=== PATIENT | female | born 2000 | race Caucasian/White ===

== ENCOUNTER 2018-05-11 09:42 | Outpatient (CLI) | payer MEDICAID, SELFPAY ==
[2018-05-11 10:57] VITALS: BMI 20.2
== END 2018-05-11 12:35 | disposition home or self-care (01) ==
LOC: WPOUT 09:44 → WP 09:50
PROVIDERS: Referring Provider Obstetrics & Gynecology; Visit Provider Obstetrics & Gynecology
DX: O30.0 Twin pregnancy (principal); Z3A.00 Weeks of gestation of pregnancy not specified
CPT/HCPCS: 59025; 59050; 99218; G0378

== ENCOUNTER 2018-05-15 09:50 | Outpatient (CLI) | payer MEDICAID, SELFPAY ==
[2018-05-15 10:18] VITALS: BMI 20.2
--- NOTE | 2018-05-16 08:06 | OB.TRI.NOTE ---
History of Present Illness Date of Service: 05/15/18 Was patient seen by the physician?: No Reason For Visit: NST Date of Service: 05/15/18 Gestational age: 24.4 Allergies No Known Allergies Allergy (Verified 05/15/18 10:19) NST - FHR Rate Baby A Baseline: 140 Variability:: Moderate Accelerations:: 10 x 10 Decelerations:: None NST Reactive:: Yes FHR Category:: Category I Uterine Activity:: no - FHR Rate Baby B Baseline: 145 Variability:: Moderate Accelerations:: 10 x 10 Decelerations:: None NST Reactive:: Yes FHR Category:: Category I Uterine Activity:: no Impression/Plan 17yo @ 24.4 wks, [place]/mono twins here for NST well being established.
== END 2018-05-15 11:25 | disposition home or self-care (01) ==
LOC: WPOUT 09:55 → WP 09:55
PROVIDERS: Referring Provider Obstetrics & Gynecology; Visit Provider Obstetrics & Gynecology
DX: O30.012 Twin pregnancy, monochorionic/monoamniotic, second trimester (principal); Z3A.24 24 weeks gestation of pregnancy
CPT/HCPCS: 59025

== ENCOUNTER 2018-05-18 09:55 | Outpatient (CLI) | payer MEDICAID, SELFPAY ==
[2018-05-18 10:19] VITALS: BMI 20.4
--- NOTE | 2018-05-18 12:27 | OB.TRI.NOTE ---
History of Present Illness Date of Service: 05/18/18 Reason For Visit: NST Allergies No Known Allergies Allergy (Verified 05/15/18 10:19) NST - FHR Rate Baby A Baseline: 140 Variability:: Minimal, Moderate Accelerations:: 10 x 10 Decelerations:: Variable NST Reactive:: Appropriate for gestational age Uterine Activity:: quiet - FHR Rate Baby B Baseline: 145 Variability:: Minimal, Moderate Accelerations:: 10 x 10 Decelerations:: Variable NST Reactive:: Appropriate for gestational age Uterine Activity:: quiet Impression/Plan Reassuring NST for mono-mono twins @25 weeks
== END 2018-05-18 12:28 | disposition home or self-care (01) ==
LOC: WPOUT 10:02 → WP 10:04
PROVIDERS: Referring Provider Obstetrics & Gynecology; Visit Provider Obstetrics & Gynecology
DX: O30.0 Twin pregnancy (principal); O76 Abnormality in fetal heart rate and rhythm complicating labor and delivery; Z3A.00 Weeks of gestation of pregnancy not specified
CPT/HCPCS: 59025; 59050; 99218; G0378

== ENCOUNTER 2018-05-22 10:04 | Outpatient (CLI) | payer MEDICAID, SELFPAY ==
[2018-05-22 10:23] VITALS: BMI 20.6
--- NOTE | 2018-05-29 12:46 | OB.TRI.PN ---
Progress Notes Date of Service: 05/22/18 Progress Note: Diagnosis: [place]-mono twin . Pt presented for NST. FHT reassuring for gestational age.
--- NOTE | 2018-05-29 12:49 | OB.TRI.PN_ITS ---
Progress Notes Date of Service: 05/13/18 Progress Note: Diagnosis: [place]-mono twin . Patient presented for NST. NST reassuring.
== END 2018-05-22 11:50 | disposition home or self-care (01) ==
LOC: WPOUT 10:05 → WP 10:05
PROVIDERS: Referring Provider Obstetrics & Gynecology; Visit Provider Obstetrics & Gynecology
DX: O30.0 Twin pregnancy (principal); Z3A.00 Weeks of gestation of pregnancy not specified
CPT/HCPCS: 59025; 59050; 99218; G0378

== ENCOUNTER 2018-05-25 09:40 | Outpatient (CLI) | payer MEDICAID, SELFPAY ==
--- NOTE | 2018-05-31 20:48 | OB.TRI.NOTE ---
History of Present Illness Date of Service: 05/25/18 Was patient seen by the physician?: No Reason For Visit: NST Date of Service: 05/25/18 Final IVA: 08/31/18 Final IVA Source: US <20 weeks Gestational age: 26 Weeks and 6 Days Allergies No Known Allergies Allergy (Verified 05/22/18 10:29) NST - FHR Rate Baby A Baseline: 145 bpm Variability:: Moderate Accelerations:: 15 x 15 Decelerations:: Variable NST Reactive:: Yes, Appropriate for gestational age FHR Category:: Category I - before discharge Uterine Activity:: quiet - FHR Rate Baby B Baseline: 150 bpm Variability:: Moderate Accelerations:: 15 x 15 Decelerations:: Variable NST Reactive:: Yes, Appropriate for gestational age FHR Category:: Category I - before discharge Uterine Activity:: quiet Impression/Plan 17-year-old high risk primigravida patient with monochorionic monoamniotic twin gestation at 26 weeks. NSTs x2 appropriate for gestational age.
== END 2018-05-25 11:45 | disposition home or self-care (01) ==
LOC: WPOUT 10:09 → WP 10:10
PROVIDERS: Referring Provider Obstetrics & Gynecology; Visit Provider Obstetrics & Gynecology
DX: O09.92 Supervision of high risk pregnancy, unspecified, second trimester (principal); O30.012 Twin pregnancy, monochorionic/monoamniotic, second trimester; O76 Abnormality in fetal heart rate and rhythm complicating labor and delivery; Z3A.26 26 weeks gestation of pregnancy
CPT/HCPCS: 59025; 59050; 99218; G0378

== ENCOUNTER 2018-06-01 09:55 | Outpatient (CLI) | payer MEDICAID, SELFPAY ==
[2018-06-01 10:23] VITALS: BMI 20.9
--- NOTE | 2018-06-01 12:39 | OB.TRI.NOTE ---
- Problem List (1) Monoamniotic and monochorionic twin gestation, antepartum Status: Acute History of Present Illness Date of Service: 06/01/18 Reason For Visit: NST Date of Service: 06/01/18 Final IVA: 08/31/18 Final IVA Source: US <20 weeks Gestational age: 27 Weeks and 0 Days History of Present Illness: Patient presents for NST for mono-mono twin gestation. She has no complaints. Allergies No Known Allergies Allergy (Verified 05/22/18 10:29) NST - FHR Rate Baby A Baseline: 140 Variability:: Moderate NST Reactive:: Appropriate for gestational age - FHR Rate Baby B Baseline: 140 Variability:: Moderate NST Reactive:: Appropriate for gestational age Uterine Activity:: Quiet Impression/Plan NST reassuring x 2. Ok for d/c home
== END 2018-06-01 12:35 | disposition home or self-care (01) ==
LOC: WPOUT 10:01 → WP 10:02
PROVIDERS: Referring Provider Advanced Practice Midwife; Visit Provider Advanced Practice Midwife
DX: O30.012 Twin pregnancy, monochorionic/monoamniotic, second trimester (principal); Z3A.27 27 weeks gestation of pregnancy
CPT/HCPCS: 59025; 59050; 76815; 99218; G0378

== ENCOUNTER 2018-06-02 14:30 | Outpatient (CLI) | payer MEDICAID, SELFPAY ==
--- NOTE | 2018-06-02 14:49 | OB.TRI.NOTE ---
History of Present Illness Date of Service: 06/02/18 Was patient seen by the physician?: Yes Reason For Visit: DECREASED MOVEMENT Date of Service: 06/02/18 Final IVA Source: US <20 weeks History of Present Illness: 17yo @ 27+ weeks gestation- MONO/MONO twins c/o decreased FM. pt reports only about 12 movements in 2 hours. pt denies vb, lof, contractions. pt is scheduled to See MFM at [facility] Monday06/05/18 and at that time possible admission until delivery. Pt offers no other concerns today. Allergies No Known Allergies Allergy (Verified 05/22/18 10:29) Physical Exam General: Alert, Oriented x3 Abdomen: Soft, Non Tender, Gravid Neurological: Cranial nerves II-XII grossly intact Presentation: Cephalic NST - FHR Rate Baby A Baseline: 140 Variability:: Moderate Accelerations:: 10 x 10 Decelerations:: None NST Reactive:: Yes, Appropriate for gestational age FHR Category:: Category I Uterine Activity:: irregular. Pt not feeling them - FHR Rate Baby B Baseline: 130 Variability:: Moderate Accelerations:: None, 10 x 10 Decelerations:: None NST Reactive:: Yes, Appropriate for gestational age FHR Category:: Category I Uterine Activity:: irregular. pt not feeling Impression/Plan 17yo @ 27+ weeks gestation with mono/mono twins- decreased FM. 1) Bedside ultrasound performed- Both fetus' moving well, MYRTLE appears wnl, FHR 130s/140s. Fetus A moving a lot - difficult to trace. 2) well being established- will get NST and will dc home. Patient to continue to do kick counts- call if any concerns
[2018-06-02 14:59] VITALS: BMI 20.9
[2018-06-02 16:17] LABS: Bacteria 0 SEEN /hpf (None Seen); Color, Urine Yellow (Yellow); Glucose, Dipstick Normal (Normal); Ketone-Dipstick Negative (Negative); Leukocyte Esterase-Dipstick 25 /ul (Negative); Mucous, Urine 0 SEEN /hpf (<or=2+); Nitrite-Dipstick Negative (Negative); Occult Blood-Urine Negative /ul (Negative); Protein-Dipstick Negative (Negative); Red Blood Cells-Urine 0 SEEN /hpf (0-5); Squamous Epithelial Cells - UA 0 SEEN /hpf (5-10); Urine Bilirubin Dipstick Negative (Negative); Urine Clarity Clear (Clear); Urine Urobilinogen Normal (Normal); White Blood Cells 0 SEEN /hpf (0-5)
--- NOTE | 2018-06-03 08:30 | OB.TRI.PN ---
Progress Notes Date of Service: 06/02/18 Progress Note: pt was having Contractions every 1-2 min- not feeling any pain or cramping. UA was performed- negative. NST - A) 140s mod william + accels 10x10 no decels B) 140s mod william, + accels 10x10 no decels TOCO: q1-3 at times and some irritability. - Pt is not feeling them. dc home - instructions reviewed. Laboratory Studies: Laboratory Tests 06/02/18 Range/Units 16:05 Urine Color Yellow (Yellow) Urine Clarity Clear (Clear) Urine pH 7.0 (5.0 - 8.0) Ur Specific [place] 1.010 (1.002-1.030) Urine Protein Negative (Negative) mg/dl Urine Glucose (UA) Normal (Normal) mg/dl Urine Ketones Negative (Negative) mg/dl Urine Occult Blood Negative (Negative) /ul Urine Nitrite Negative (Negative) Urine Bilirubin Negative (Negative) mg/dL Urine Urobilinogen Normal (Normal) mg/dl Ur Leukocyte Esterase 25 H (Negative) /ul Urine RBC 0 SEEN (0-5) /hpf Urine WBC 0 SEEN (0-5) /hpf Ur Squamous Epith Cells 0 SEEN (5-10) /hpf Urine Bacteria 0 SEEN (None Seen) /hpf Urine Mucus 0 SEEN (<or=2+) /hpf
== END 2018-06-02 17:14 | disposition home or self-care (01) ==
LOC: WPOUT 14:45 → WP 14:46
PROVIDERS: Referring Provider Obstetrics & Gynecology; Visit Provider Obstetrics & Gynecology
DX: O36.8120 Decreased fetal movements, second trimester, not applicable or unspecified (principal); O30.012 Twin pregnancy, monochorionic/monoamniotic, second trimester; Z3A.27 27 weeks gestation of pregnancy
CPT/HCPCS: 59025; 59050; 76815; 81001; 99218; G0378

== ENCOUNTER 2019-01-20 20:16 | Emergency (ER) | payer MEDICAID, SELFPAY ==
[2019-01-20 20:17] VITALS: BP 107/66; PULSE 122; RESP 16; TEMP 37.7; O2SAT 97; BMI 16.4
[2019-01-20] MEDS: Ketorolac 15 MG/ML Vial IV (20:54)
[2019-01-20] MEDS: 0.9% Normal Saline 1,000 ML 999 ML IV (20:54)
[2019-01-20 21:03] VITALS: BP 97/68; PULSE 89; RESP 22; O2SAT 100
[2019-01-20 21:32] LABS: ALB/GLOB Ratio 1.4 RATIO (0.9-2.4); AST(SGOT) 25 U/L (15-37); Alanine Aminotransfer ALT/SGPT 26 U/L (13-56); Albumin, Serum 4.1 g/dL (3.2-5.0); Alkaline Phosphatase 65 U/L (45-117); Anion Gap 11 (5-15); BUN 9 mg/dL (7-18); BUN/Creat Ratio 10.1 RATIO (10-20); Calcium,Total 8.7 mg/dL (8.5-10.1); Chloride 104 mmol/L (98-107); Creatinine, Serum 0.89 mg/dL (0.55-1.02); EST Glomerular Filtration Rate 85 mL/min (>60); Est Glom Filt Rate - Afr Amer 103 mL/min (>60); Estimated Creatinine Clearance 77.84 ml/min; Globulin 2.9 g/dL (2.2-4.2); Glucose 108 mg/dL (74-106); Potassium 3.6 mmol/L (3.5-5.1); Sodium Level 139 mmol/L (136-145)
[2019-01-20 21:38] LABS: Internal QC Validated? YES +Cl - CLEAR BKGD
[2019-01-20 21:40] LABS: Pregnancy, Serum, hCG Quali. NEGATIVE Negative
--- NOTE | 2019-01-20 21:40 | ED.DCSUM_ITS ---
History of Present Illness Chief Complaint: General Illness Narrative: Patient presenting for evaluation secondary to headache and fever. Patient reports that this morning she developed somewhat of an occipital headache and fevers as high as 103. She reports that symptoms have been relatively refractory to treatment with Tylenol. Patient reports that she also has a sore throat and some pain with swallowing, and some pain with palpation of the posterior portion of her neck. She denies any abnormal skin rashes. She denies any sick contacts or travel. She denies any history of recent surgeries, injections, or history of IV drug abuse. Patient does report that she has pain with turning her head, and feels almost as if she will pass out when she turns her head. She denies any underlying medical history. Review of systems otherwise negative. Past Medical History - Allergies and Home Meds Allergies/Adverse Reactions: Allergies No Known Allergies Allergy (Verified 01/20/19 20:19) Primary Care Physician: Care Physician,No Primary [Primary Care Provider] - Smoking Status: Never smoker Review of Systems All systems negative except as indicated General: Reports: Fever, Malaise ENT: Reports: Sore throat. Denies: Bilateral ear pain, Rhinorrhea Respiratory: Denies: Dyspnea, Cough Gastrointestinal: Denies: Nausea, Vomiting Musculoskeletal: Reports: Neck pain Skin: Denies: Rash Neurological: Reports: Headache Physical Exam Vital Signs/Narrative: Vital Signs Temp Pulse Resp BP Pulse Ox 01/20/19 21:03 89 22 H 97/68 100 01/20/19 20:17 99.9 F H 122 H 16 107/66 97 General: Well nourished, Well developed, - - Laying in the bed with a shirt over her eyes, ill-appearing but not toxic appearing. Head: NC, AT Eyes: Perrl, EOMI ENT: Moist mucous membranes, No rhinorrhea, TM's clear Neck: - - Patient complains of pain with palpation of the posterior portion of the neck. There are palpable posterior cervical lymph nodes noted. No evidence of masses. Negative Brudzinski and Kernig signs, positive jolt sign. Cardiovascular: Regular rhythm, No murmurs, Tachycardia Respiratory: No distress, CTA bilaterally, Chest nontender Abdomen: Soft, Nontender, Nondistended, Normal bowel sounds Extremities: Nontender, No edema Skin: Normal color, No rash, - - No evidence of petechial rash, splinter hemorrhages, [place]ay lesions or Osler nodes. Neuro: Alert, Oriented x3, Cranial nerves II-XII grossly intact, Normal Strength, Normal Sensation, Normal DTR, Normal Gait Psychological: Normal affect Diagnostic/Tx/Re-eval - Medical Decision Making Patient presented secondary to a febrile illness. She was complaining somewhat of having a headache and some neck pain. She did not seem to have any classic Brudzinski or Kernig sign but did complain of some pain with turning her head left and right. She has no evidence of petechia, she is recently nontoxic- appearing. IV was established laboratory studies were obtained. Patient was found to have a leukocytosis of 11 with a neutrophilic predominance, but was not found to have a anion gap acidosis or elevated lactic acid. Patient was given fluids and Toradol and repeat evaluation shows the patient to have symptomatic improvement. She still does complain of some headache and neck pain. I discussed with the patient about the possibility of meningitis, but frankly the patient really does not appear toxic at this point to make me think that she has bacterial meningitis and would warrant a lumbar puncture. We did discuss the risks and benefits of lumbar puncture, and the patient agrees that she would not like that performed this evening. Patient does not have a primary care physician, and I did want her checked in 24 hours if she does not start to have improvement so I recommended that she come back to the emergency department tomorrow should she not start having improvement. She also understands that should she have any sort of worsening that she should come back immediately to the emergency department. Patient was recommended conservative management measures for likely a viral illness including Tylenol ibuprofen fluids and rest. Patient was discharged in improved condition. Disposition: Home ED Disposition - Plan for ED Patient: Disposition: Home or Assisted Living Diagnosis: Viral illness Instructions: ED Fever Unconf Cause Referrals: Yoel Ayoub MD [STAFF PHYSICIAN] - Additional Instructions: Come back to the ED tomorrow for re-evaluation if you are not having improvement. Return earlier if you feel worse.
[2019-01-20 21:54] LABS: Absolute Lymphocyte Count 0.82 X10^3/ul (0.83-4.51); Basophil# 0.01 X10^3/uL; Basophil% 0.1 % (0-1); Eosinophil# 0.01 X10^3/uL; Eosinophils% 0.1 % (0-5); Hematocrit 39.3 % (37-47); Hemoglobin 13.6 g/dl (12.0-15.0); Lymphocyte # 0.82 X10^3/ul (4.0); Mean Corp Hgb Conc 34.6 g/gl (32-36); Mean Corpuscular Hgb 28.7 pg (27.0-32.0); Mean Corpuscular Volume 82.9 fL (81-99); Mean Platelet Vol. 10.3 fl (6.2-12.0); Monocyte# 0.87 X10^3/uL; Monocyte% 7.4 % (0-10); Neutrophil # 9.98 X10^3/uL (2.7-7.7); Neutrophil % 85.2 % (47-70); Platelet Count 218 K/mm3 (150-450); RBC Distribution Width CV 12.4 % (11.6-14.6); RBC Distribution Width SD 37.7 fl (35.1-43.9); Red Blood Count 4.74 M/mm3 (4.2-5.4); White Blood Count 11.7 K/mm3 (4.4-11.0)
[2019-01-20 22:00] LABS: POSITIVE COUNT NO; POSITIVE DIFFERENTIAL NO; POSITIVE MORPHOLOGY NO
[2019-01-20 22:17] VITALS: BP 107/67; PULSE 88; RESP 16; TEMP 36.8; O2SAT 99
[2019-01-20 22:41] LABS: International Normalized Ratio 1.2; Prothrombin Time (Protime)PT. 15.2 SECONDS (11.7-14.9)
[2019-01-20 22:42] LABS: Partial Thromboplast Time 33.2 Seconds (24.1-36.2)
== END 2019-01-20 22:25 | disposition home or self-care (01) ==
PROVIDERS: Emergency Provider Emergency Medicine
DX: B34.9 Viral infection, unspecified (principal); R51 Headache; R50.9 Fever, unspecified; R53.81 Other malaise; J02.9 Acute pharyngitis, unspecified; M54.2 Cervicalgia
CPT/HCPCS: 36415; 80053; 83605; 84703; 85025; 85610; 85730; 87040; 87880; 96361; 96374; 99284; J7030

== ENCOUNTER → 2019-01-31 | Outpatient (CLI) | payer MEDICAID, SELFPAY ==
[2019-01-20 20:17] VITALS: BMI 16.4
== END | disposition home or self-care (01) ==
LOC: WPOUT 13:00
DX: Z39.1 Encounter for care and examination of lactating mother (principal)
CPT/HCPCS: 96152

== ENCOUNTER 2019-04-28 21:40 | Emergency (ER) | payer MEDICAID, SELFPAY ==
[2019-04-28 21:40] VITALS: BP 147/82; PULSE 72; RESP 16; TEMP 36.6; O2SAT 100; BMI 18.1
--- NOTE | 2019-04-28 21:59 | ED.VIS.GEN ---
History of Present Illness Chief Complaint: Wound Detail of Chief Complaint: Self-inflicted cuts to left thigh Informant: Patient, Family Onset: Today Current Severity: Mild Maximum Severity: Mild Narrative: Patient has a history of cutting. Today she is a pair of scissors to make multiple linear superficial lacerations on her proximal left thigh. She states this was to release her anger, not an attempt to hurt herself. She has been in counseling in the past but has not been recently. She does voice interest in getting into counseling again. She denies that this was a suicide attempt. She does feel safe in her home. Past Medical History - Allergies and Home Meds Allergies/Adverse Reactions: Allergies No Known Allergies Allergy (Verified 04/28/19 21:42) Primary Care Physician: Counseling,[facility] [GROUP OF PHYSICIANS] - Behavioral,[facility] [GROUP OF PHYSICIANS] - Prior records reviewed: Yes Past Medical History: - - Reviewed Lives: With Family Smoking Status: Never smoker Review of Systems General: Denies: Chills, Fever Eyes: Denies: Visual changes - bilaterally ENT: Denies: Bilateral ear pain Cardiovascular: Denies: Chest pain Respiratory: Denies: Dyspnea, Cough Gastrointestinal: Denies: Abdominal pain, Nausea Musculoskeletal: Reports: Myalgias Skin: Reports: Wounds Neurological: Denies: Headache Psych: Denies: Suicidal thoughts Hematologic: Denies: Easy bleeding Allergy: Denies: Uticaria Physical Exam Vital Signs/Narrative: Vital Signs Temp Pulse Resp BP Pulse Ox 04/28/19 21:40 98 F 72 16 147/82 H 100 Inital Vital Signs reviewed: Yes General: Well nourished, Well developed Head: Normocephalic ENT: Moist mucous membranes Neck: Supple Cardiovascular: Regular rate, Regular rhythm Respiratory: No distress, CTA bilaterally Abdomen: Soft, Nontender Extremities: - - Patient has multiple parallel superficial lacerations over the proximal left thigh, measuring approximate 9 cm in length. 1 of the lacerations is minimally gaping. Others do not require any repair. Neurological: Alert, Oriented x3 Psychological: - - Denies suicidal or homicidal ideation. Diagnostic/Tx/Re-eval - Medical Decision Making Left thigh wounds are cleansed. I do not believe that placing 1 or 2 small stitches in the one laceration that is slightly gaping will greatly change healing time. She has not read out the cosmetic appearance. Surgifoam was placed across the area and area is wrapped with Ernie wrap. Patient continues to state this was not a suicide attempt. She does not feel that she needs to speak with a counselor beth, but is interested and pursuing follow-up with counseling. is present at bedside. He feels comfortable with her at home and feels that he can help keep her safe as well. Patient is given phone numbers for both the counseling center as well as behavioral health. ED Disposition - Plan for ED Patient: Disposition: Home or Assisted Living Diagnosis: Deliberate self-cutting Instructions: Wound Care Referrals: [facility] [GROUP OF PHYSICIANS] - Behavioral,[facility] [GROUP OF PHYSICIANS] -
[2019-04-28 22:35] VITALS: BP 142/60; PULSE 70; RESP 16; O2SAT 98
== END 2019-04-28 22:36 | disposition home or self-care (01) ==
LOC: ED 22:00
PROVIDERS: Emergency Provider Emergency Medicine
DX: S71.112A Laceration without foreign body, left thigh, initial encounter (principal); X78.8XXA Intentional self-harm by other sharp object, initial encounter; Y93.9 Activity, unspecified; Y92.9 Unspecified place or not applicable; Z91.5 Personal history of self-harm
CPT/HCPCS: 99282

== ENCOUNTER 2020-04-06 17:35 | Outpatient (CLI) | payer MEDICAID, SELFPAY ==
[2020-04-06 17:50] VITALS: BP 124/71; PULSE 82; TEMP 36.6
[2020-04-06 18:17] VITALS: BMI 21.2
[2020-04-06 19:51] VITALS: BP 121/75; PULSE 109
--- NOTE | 2020-04-09 20:44 | OB.TRI.NOTE ---
History of Present Illness Date of Service: 04/06/20 Was patient seen by the physician?: No Reason For Visit: MONITORING Date of Service: 04/06/20 Final IVA: 04/14/20 Final IVA Source: US <20 weeks Gestational age: 39 Weeks and 2 Days Allergies No Known Allergies Allergy (Verified 04/06/20 18:19) Physical Exam Vitals: Vital Signs Temp Pulse BP 97.9 F 109 H 121/75 H 04/06/20 17:50 04/06/20 19:51 04/06/20 19:51 NST - FHR Rate Baby A Baseline: 120 Variability:: Moderate Accelerations:: 15 x 15 Decelerations:: None NST Reactive:: Yes FHR Category:: Category I Uterine Activity:: irreg ctxs Impression/Plan 19 YOF @ 38 6/7 weeks decreased movement reactive NST kick counts f/u in offie this week or prn
== END 2020-04-06 18:40 | disposition home or self-care (01) ==
LOC: WPOUT 17:47 → OBT 17:48
PROVIDERS: Visit Provider Obstetrics & Gynecology
DX: O36.8130 Decreased fetal movements, third trimester, not applicable or unspecified (principal); Z3A.38 38 weeks gestation of pregnancy
CPT/HCPCS: 59025; 59050; 99218; G0378

== ENCOUNTER 2020-04-10 18:55 | Outpatient (CLI) | payer MEDICAID, SELFPAY ==
[2020-04-10 19:18] VITALS: BP 136/87; PULSE 87; TEMP 36.9; O2SAT 99
[2020-04-10 19:30] VITALS: BMI 21.2
[2020-04-10 19:40] VITALS: BP 109/69; PULSE 78
--- NOTE | 2020-04-10 21:53 | OB.TRI.NOTE ---
- Problem List (1) 39 weeks gestation of Status: Acute (2) History of delivery Status: Acute (3) Irregular contractions Status: Acute History of Present Illness Date of Service: 04/10/20 Was patient seen by the physician?: Yes Reason For Visit: R/O LABOR Date of Service: 04/10/20 Final IVA: 04/14/20 Final IVA Source: US <20 weeks Gestational age: 39 Weeks and 3 Days History of Present Illness: Patient is a at 39.3 weeks gestation here for contractions starting at 1400. Patient denies loss of fluid or vaginal bleeding. Positive movement. History of C/S mono-mono twins at 32 weeks gestation. Desires with this . Allergies No Known Allergies Allergy (Verified 04/10/20 19:31) Review of Systems Constitutional: Denies: Anorexia, Chills, Fever Cardiovascular: Denies: Chest Pain Respiratory: Denies: Cough, Shortness of Breath Gastrointestinal: Denies: Abdominal Pain Genitourinary: Denies: Dysuria Physical Exam Vitals: Vital Signs Temp Pulse BP Pulse Ox 98.5 F 78 109/69 99 04/10/20 19:18 04/10/20 19:40 04/10/20 19:40 04/10/20 19:18 General: Alert, Oriented x3 Cardiovascular: Regular rate Lungs: Clear to auscultation, Normal air movement Abdomen: Soft, Non Tender, Gravid Neurological: Cranial nerves II-XII grossly intact Cervix Dilation (cm): 1.5 - RN exam Station: -1 Effacement (%): 70 NST - FHR Rate Baby A Baseline: 125 Variability:: Moderate Accelerations:: 15 x 15 Decelerations:: Variable NST Reactive:: Yes FHR Category:: Category I Uterine Activity:: TOCO reading every 2-5 minutes. Palpate mild and relaxed in between Impression/Plan at 39.3 weeks gestation rule out labor Continuous monitoring Category 1 tracing- Reactive NST Cervical exam unchanged Discussed early labor- patient desires and unmedicated Discharge home with labor precautions and when to call or return Dr. Reid notified and agrees with plan of care- collaborating physician
== END 2020-04-10 21:54 | disposition home or self-care (01) ==
LOC: WPOUT 19:01 → OBT 19:02
PROVIDERS: Visit Provider Advanced Practice Midwife
DX: O62.9 Abnormality of forces of labor, unspecified (principal); Z3A.39 39 weeks gestation of pregnancy
CPT/HCPCS: 59025; 59050; 94760; 99218; G0378

== ENCOUNTER 2020-04-11 19:22 | Outpatient (CLI) | payer MEDICAID, SELFPAY ==
[2020-04-10 19:30] VITALS: BMI 21.2
[2020-04-11 19:35] VITALS: BP 116/71; PULSE 85; TEMP 36.7; O2SAT 96
[2020-04-11 19:45] VITALS: BMI 21.2
[2020-04-11] MEDS: Lactated Ringers 1,000 ML 999 ML IV (20:10)
--- NOTE | 2020-04-11 21:31 | OB.TRI.NOTE ---
- Problem List (1) 39 weeks gestation of Status: Acute (2) History of delivery Status: Acute (3) Irregular contractions Status: Acute History of Present Illness Date of Service: 04/11/20 Reason For Visit: RULE OUT LABOR Date of Service: 04/11/20 Final IVA Source: US <20 weeks Gestational age: 39.4 History of Present Illness: Patient is a that presents with contractions that continue to increase in intensity and frequency. Denies loss of fluid or vaginal bleeding. Positive movement. Patient was here in triage last night with same concerns and discharged home. History of c/s for mono/mono twins and desires and an unmedicated labor and delivery. Allergies No Known Allergies Allergy (Verified 04/11/20 19:47) Review of Systems Constitutional: Denies: Anorexia, Chills, Fever Cardiovascular: Denies: Chest Pain, Edema Respiratory: Denies: Cough, Shortness of Breath Gastrointestinal: Denies: Abdominal Pain Neurological: Denies: Balance problems Physical Exam Vitals: Vital Signs Temp Pulse BP Pulse Ox 98.0 F 85 116/71 96 04/11/20 19:35 04/11/20 19:35 04/11/20 19:35 04/11/20 19:35 General: Alert, Oriented x3 Cardiovascular: Regular rate Lungs: Normal air movement Abdomen: Soft, Non Tender, Gravid Neurological: Cranial nerves II-XII grossly intact Presentation: Cephalic Cervix Dilation (cm): 1.5 - RN exam Station: -2 Effacement (%): 80 NST - FHR Rate Baby A Baseline: 130 Variability:: Moderate Accelerations:: 15 x 15 Decelerations:: Variable NST Reactive:: Yes FHR Category:: Category II Uterine Activity:: Irregular contractions Impression/Plan at 39.4 weeks with contractions Continuous EFM Category 2 tracing with occasional variables, moderate variability and overall reassuring Irregular contractions Start IV fluids to assist with hydration Offered Extra Strength Tylenol for pain Dr. Reid notified and viewed strip CE- Unchanged from yesterday 1.5cm/70/-2 Discharged home with labor precautions Patient agrees with plan of care
[2020-04-11 21:33] VITALS: PULSE 70
[2020-04-11] MEDS: Acetaminophen 500 MG Tablet 1000 MG PO (22:06)
[2020-04-11] MEDS: DiphenhydrAMINE 25 MG Capsule PO (22:07)
== END 2020-04-11 22:30 | disposition home or self-care (01) ==
LOC: WPOUT 19:27 → OBT 19:28
PROVIDERS: Visit Provider Advanced Practice Midwife
DX: O62.9 Abnormality of forces of labor, unspecified (principal); O36.8330 Maternal care for abnormalities of the fetal heart rate or rhythm, third trimester, not applicable or unspecified; Z3A.39 39 weeks gestation of pregnancy
CPT/HCPCS: 96360; 36415; 59025; 59050; 99218; G0378

== ENCOUNTER 2020-04-12 10:31 | Inpatient (IN) | payer MEDICAID, SELFPAY ==
[2020-04-11 19:45] VITALS: BMI 21.2
[2020-04-12] VITALS (39 sets, daily range): BP systolic 103–137; BP diastolic 57–100; PULSE 66–100; RESP 16; TEMP 36.7–37.2; O2SAT 92–100; BMI 21.2
[2020-04-12] MEDS: Lactated Ringers 500 ML 999 ML IV (10:50)
--- NOTE | 2020-04-12 11:20 | PCM.HP.OB ---
- Problem List (1) 39 weeks gestation of Status: Acute (2) History of delivery Status: Acute History Date of Admission: 04/12/20 Final IVA: 04/14/20 Final IVA Source: US <20 weeks Gestational age: 39 Weeks and 5 Days History of this : This is a 19 year-old, G [2], P [0102], at 38.6 weeks gestational age in active labor. Patient desires . History of primary c/s for mono/mono twins at 32 weeks gestation. Patient has been asia all weekend and has been to triage 2x with no cervical change and sent home. Positive movement and denies any loss of fluid or vaginal bleeding. Allergies No Known Allergies Allergy (Verified 04/12/20 11:05) Home Medications: Home Medications Pnv No.95/Ferrous Fum/Folic AC [ Caplet] 1 tablet PO DAILY 04/06/20 Iron 04/10/20 Smoking Status: Never smoker Number of Fetus(es): 1 NST - FHR Rate Baby A Baseline: 130 Variability:: Moderate Accelerations:: 15 x 15 Decelerations:: None FHR Category:: Category I Uterine Activity:: TOCO reading every 2-3 minutes. Palpate strong and relaxed in between History Past Pregnancies: Past Pregnancies Delivery Date Name GA/ Weeks Outcome Route Wt Sex Labor Length Anesthesia Delivery Location Provider FOB Labs: B+ Rubella - IMMUNE HB -neg HC- neg RPR- NR HIV- NR GC/CH- neg GBS- positive Review of Systems Constitutional: Denies: Anorexia, Chills Eyes: Denies: Blurred vision Cardiovascular: Denies: Chest Pain, Chest Tightness Respiratory: Denies: Cough, Shortness of Breath Genitourinary: Denies: Dysuria Neurological: Denies: Headaches Physical Exam Vitals: Vital Signs Temp Pulse BP Pulse Ox 99.0 F 93 111/78 98 04/12/20 10:43 04/12/20 10:57 04/12/20 10:56 04/12/20 10:57 General: Alert, Oriented x3 HEENT: Atraumatic Cardiovascular: Regular rate Lungs: Normal air movement Abdomen: Soft, Non Tender, Gravid Neurological: Cranial nerves II-XII grossly intact Estimated gestational size: Small for gestational age Cervix Dilation (cm): 5 Station: 1 Effacement (%): 90 Assessment/Plan All Active Problems Monoamniotic and monochorionic twin gestation, antepartum (Acute) 39 weeks gestation of (Acute) History of delivery (Acute) Irregular contractions (Acute) This is a 19 year-old, G [2], P [0102], at 39.5 weeks gestational age that desires in active labor Admit to labor and delivery IV fluids per protocol GBS + - Start PCN 5 million units IV Epidural when indicated Anticipate Negative COVID- 19 Dr. Reid notified and is in route to hospital to be in house
[2020-04-12 11:23] LABS: Absolute Lymphocyte Count 2.56 X10^3/uL (0.83-4.51); Absolute Neutrophil Count 12.4 X10^3/uL (2.0-7.7); Basophil# 0.03 X10^3/uL; Basophil% 0.2 % (0-1); Eosinophil# 0.06 X10^3/uL; Eosinophils% 0.4 % (0-5); Hematocrit 35.4 % (37-47); Hemoglobin 12.2 g/dL (12.0-15.0); Lymphocyte # 2.56 X10^3/ul (4.0); Lymphocyte % 16.2 % (19-41); Mean Corp Hgb Conc 34.5 g/dL (32-36); Mean Corpuscular Hgb 29.7 pg (27.0-32.0); Mean Corpuscular Volume 86.1 fL (81-99); Mean Platelet Vol. 10.4 fl (6.2-12.0); Monocyte# 0.72 X10^3/uL; Monocyte% 4.5 % (0-10); NRBC Flagged by Analyzer 0 % (0-5); Neutrophil # 12.41 X10^3/uL (2.7-7.7); Neutrophil % 78.3 % (47-70); Platelet Count 236 K/mm3 (150-450); RBC Distribution Width CV 12.6 % (11.6-14.6); RBC Distribution Width SD 39.2 fl (35.1-43.9); Red Blood Count 4.11 M/mm3 (4.2-5.4); White Blood Count 15.9 K/mm3 (4.4-11.0)
[2020-04-12] MEDS: Lactated Ringers 1,000 ML 200 ML IV (11:27)
[2020-04-12] MEDS: fentaNYL-bupivacaine (epidural) 100 ML BAG EPIDURAL (11:39)
[2020-04-12] MEDS: Oxytocin 30 units/NS 500 ml 30 UNITS/500 ML IV.SOLN 334 UNITS IV (13:11)
--- NOTE | 2020-04-12 13:40 | PCM.OPRPT ---
Problem List (1) 39 weeks gestation of Status: Acute (2) History of delivery Status: Acute Report of Operation Date of Procedure: 04/12/20 Pre-Operative Diagnosis: Term gestation, Active labor Post-Operative Diagnosis: Same, live male infant Vaginal Delivery Maternal Presentation: Active Labor at 39.5 weeks gestation for presented in active labor. Amniotic Membrane Rupture Type: Artificial Amniotic Fluid Description: Thick meconium Final IVA: 04/14/20 Gestational age: 39 Weeks and 5 Days doctor who attended delivery (if requested by OB): Irma Oliveira Surgery/ Procedure Performed: - - Type of Anesthesia: Epidural Description of Procedure: Patient arrived in active labor and quickly progressed to complete dilation. Requesting this provider to A.R.O.M which was completed and fluid was thick meconium. Patient involuntarily pushing with contractions. Infant head delivered and body quickly there after. Placed on maternal abdomen and infant began crying. Health Care Law Specialist in room and nursery nurse attending to baby. Delayed cord clamp completed and FOB cut cord after 2 minutes. placed immediately skin to skin with patient. Placenta delivered spontaneously and was intact. After careful inspection, bilateral labial lacerations noted. The right labial laceration was repaired with 3-0 Vicryl. The left sided labial laceration was hemostatic and did not require repair. Vaginal sweep completed. All needles and sponges accounted for. Fundus firm at U. Mom and baby bonding at this time. Dr. Reid present for delivery and repair. Presentation: Vertex Placental Delivery Description: Spontaneous Placenta Disposition: [facility] Cord Vessel Description: 3 Vessels Cord Entanglement: None Drain: Grant to straight drain - 500 cc clear, yellow urine drained Estimated Blood Loss: 250 A gender: Male (1 minute): 8 (5 minute): 9 Episiotomy Description: None Laceration: Vaginal Extension/lac, 1st degree - Bilateral labial lacerations. Right side repaired Medications given after delivery: IV Pitocin Complications: None
[2020-04-12] MEDS: Ibuprofen 600 MG Tablet PO ×2 (16:09→23:32)
[2020-04-12] MEDS: Acetaminophen 500 MG Tablet 1000 MG PO (18:31)
[2020-04-12] MEDS: Dibucaine 30 GM Tube 1 APPLIC TOPICAL (18:32)
[2020-04-13] MEDS: Acetaminophen 500 MG Tablet 1000 MG PO ×2 (03:04→20:53)
[2020-04-13 04:12] VITALS: BP 121/67; PULSE 80; RESP 16; TEMP 36.7
[2020-04-13] MEDS: Ibuprofen 600 MG Tablet PO ×2 (07:48→20:33)
[2020-04-13 07:53] VITALS: BP 99/62; PULSE 68; RESP 16; TEMP 36.6
[2020-04-13] MEDS: Senna/Docusate Sodium 1 Tablet PO (08:10)
[2020-04-13 14:30] VITALS: BP 96/53; PULSE 89; RESP 16; TEMP 37.1
--- NOTE | 2020-04-13 17:00 | PCM.PN.OB ---
Subjective: No complaints - Physical Exam Vitals/I&O's: Vital Signs Temp Pulse Resp BP Pulse Ox 98.8 F 89 16 96/53 L 97 04/13/20 14:30 04/13/20 14:30 04/13/20 14:30 04/13/20 14:30 04/12/20 13:43 Oxygen Delivery Method Room Air Weight: 140 lb Body Mass Index (BMI) 21.2 Intake and Output for Last 24 Hours 04/11/20 04/12/20 04/13/20 23:59 23:59 23:59 Intake Total 1445 / 1445 Output Total 650 / 650 Balance 795 / 795 General: Alert, Oriented x3 Abdomen: Soft, Non Tender, Non-Distended - ff mid & below umb Extremities: No Calf Tenderness Current Medications Acetaminophen (Tylenol) 1,000 mg PO Q8H PRN PRN PRN Reason: Pain Score 1-3/10 Last Admin: 04/13/20 03:04 Dose: 1,000 mg Documented by: Bisacodyl (Dulcolax) 10 mg RECTAL UD PRN PRN Reason: If no BM Dibucaine (Dibucaine) 1 applic TOPICAL TID PRN PRN; Protocol PRN Reason: Discomfort Last Admin: 04/12/20 18:32 Dose: 1 applicatio Documented by: Hydrocortisone (Hytone) 1 applic TOPICAL TID PRN PRN; Protocol PRN Reason: Discomfort Ibuprofen (Motrin) 600 mg PO Q6H PRN PRN PRN Reason: Pain Score 1-3/10 Last Admin: 04/13/20 07:48 Dose: 600 mg Documented by: Methylergonovine Maleate (Methergine) 0.2 mg IM X1 PRN PRN Reason: Excess bleeding/uterine atony Ondansetron HCl (Zofran) 4 mg IV Q4H PRN PRN PRN Reason: Nausea Oxycodone HCl (Oxyir) 5 - 10 mg PO Q4H PRN PRN PRN Reason: Pain Score 4-10/10 Senna/Docusate Sodium (Senokot-S, Ivory-Colace) 1 - 2 tablet PO DAILY PRN PRN PRN Reason: Constipation Last Admin: 04/13/20 08:10 Dose: 1 tablet Documented by: Simethicone (Mylicon) 80 mg PO PCHS PRN PRN Reason: Indigestion/Stomach pain Sodium Chloride () 5 - 15 ml IV UD PRN PRN Reason: SALINE FLUSH Medical Necessity - Tobacco Use Smoking Status: Never smoker Assessment/Plan All Active Problems 39 weeks gestation of (Acute) History of delivery (Acute) Irregular contractions (Acute) PPD#1 Routine care
[2020-04-13 20:25] VITALS: BP 106/61; PULSE 71; RESP 16; TEMP 36.8
[2020-04-14 01:52] VITALS: BP 100/57; PULSE 58; RESP 18; TEMP 36.4
[2020-04-14] MEDS: Ibuprofen 600 MG Tablet PO (06:12)
--- NOTE | 2020-04-14 08:19 | PCM.PN.OB ---
Subjective: Pain well controlled. Average lochia. No new complaints. - Physical Exam Vitals/I&O's: Vital Signs Temp Pulse Resp BP Pulse Ox 97.5 F L 58 L 18 100/57 L 97 04/14/20 01:52 04/14/20 01:52 04/14/20 01:52 04/14/20 01:52 04/12/20 13:43 Oxygen Delivery Method Room Air Weight: 63.503 kg Body Mass Index (BMI) 21.2 Intake and Output for Last 24 Hours 04/12/20 04/13/20 04/14/20 23:59 23:59 23:59 Intake Total 1445 / 1445 Output Total 650 / 650 Balance 795 / 795 General: Alert, Cooperative, No apparent distress Current Medications Acetaminophen (Tylenol) 1,000 mg PO Q8H PRN PRN PRN Reason: Pain Score 1-3/10 Last Admin: 04/13/20 20:53 Dose: 1,000 mg Documented by: Bisacodyl (Dulcolax) 10 mg RECTAL UD PRN PRN Reason: If no BM Dibucaine (Dibucaine) 1 applic TOPICAL TID PRN PRN; Protocol PRN Reason: Discomfort Last Admin: 04/12/20 18:32 Dose: 1 applicatio Documented by: Hydrocortisone (Hytone) 1 applic TOPICAL TID PRN PRN; Protocol PRN Reason: Discomfort Ibuprofen (Motrin) 600 mg PO Q6H PRN PRN PRN Reason: Pain Score 1-3/10 Last Admin: 04/14/20 06:12 Dose: 600 mg Documented by: Methylergonovine Maleate (Methergine) 0.2 mg IM X1 PRN PRN Reason: Excess bleeding/uterine atony Ondansetron HCl (Zofran) 4 mg IV Q4H PRN PRN PRN Reason: Nausea Oxycodone HCl (Oxyir) 5 - 10 mg PO Q4H PRN PRN PRN Reason: Pain Score 4-10/10 Senna/Docusate Sodium (Senokot-S, Ivory-Colace) 1 - 2 tablet PO DAILY PRN PRN PRN Reason: Constipation Last Admin: 04/13/20 08:10 Dose: 1 tablet Documented by: Simethicone (Mylicon) 80 mg PO PCHS PRN PRN Reason: Indigestion/Stomach pain Sodium Chloride () 5 - 15 ml IV UD PRN PRN Reason: SALINE FLUSH Medical Necessity - Tobacco Use Smoking Status: Never smoker Assessment/Plan All Active Problems 39 weeks gestation of (Acute) History of delivery (Acute) Irregular contractions (Acute) day #2 status post vaginal delivery after previous delivery. is breast-feeding and doing well. Is doing well. Discharge home with routine instructions.
--- NOTE | 2020-04-14 08:23 | DCINST_ITS ---
Discharge Diet: No Restrictions Discharge Activity: Return to Normal Activity, May not drive while taking narcotic pain medications., May Shower May resume sexual activity in: 4-6 weeks Additional Activity Instructions:: Nothing in the vagina for 4-6 weeks. You may return to work/school in 6 weeks. Call your doctor if your incision/area has: Continuous Slow Oozing, Sudden Increased Bleeding, Increased Pain/ Swelling, Increased Redness, Foul Smelling Discharge Additional Instructions: If you experience any of the following, contact your healthcare provider. * Bleeding that soaks a pad every hour for 2 hours * Fever 100.4 or higher * Unrelieved incision or abdominal pain * Swelling, redness, discharge or bleeding from your incision or episiotomy site * Your incision begins to separate * Problems urinating (including inability to urinate or burning while urinating). * Visual changes * Severe headache * Flu-like symptoms * Pain or redness in one of both of your breasts * Pain, warmth, tenderness or swelling in your legs, especially the calf area * Frequent nausea and vomiting * Symptoms of depression or anxiety If you experience any of the following, call 911 or go to the nearest Emergency Room. * Chest pain * Problems breathing * Seizure activity * Partial or complete paralysis of a body part, slurred speech, weakness or drooping of the face, or a sudden inability to walk or hold your balance Allergies/Adverse Reactions: Allergies No Known Allergies Allergy (Verified 04/12/20 11:05) Medications to take at Discharge Pnv No.95/Ferrous Fum/Folic AC [ Caplet] 1 tablet PO DAILY 04/06/20 Iron 04/10/20 Please Follow Up With: Fior Reid MD - [phone] When: Call to make an appointment with your doctor's office for a virtual 1-2 week follow up and 6 week follow up in office. Primary Care Physician: Care Physician,No Primary [Primary Care Provider] - Test Results: Test results from this visit will be discussed in further detail at your follow- up appointment, if applicable.
--- NOTE | 2020-04-14 08:23 | PCM.DCVAG ---
Discharge Diet: No Restrictions Discharge Activity: Return to Normal Activity, May not drive while taking narcotic pain medications., May Shower May resume sexual activity in: 4-6 weeks Additional Activity Instructions:: Nothing in the vagina for 4-6 weeks. You may return to work/school in 6 weeks. Call your doctor if your incision/area has: Continuous Slow Oozing, Sudden Increased Bleeding, Increased Pain/ Swelling, Increased Redness, Foul Smelling Discharge Additional Instructions: If you experience any of the following, contact your healthcare provider. Bleeding that soaks a pad every hour for 2 hours Fever 100.4 or higher Unrelieved incision or abdominal pain Swelling, redness, discharge or bleeding from your incision or episiotomy site Your incision begins to separate Problems urinating (including inability to urinate or burning while urinating). Visual changes Severe headache Flu-like symptoms Pain or redness in one of both of your breasts Pain, warmth, tenderness or swelling in your legs, especially the calf area Frequent nausea and vomiting Symptoms of depression or anxiety If you experience any of the following, call 911 or go to the nearest Emergency Room. Chest pain Problems breathing Seizure activity Partial or complete paralysis of a body part, slurred speech, weakness or drooping of the face, or a sudden inability to walk or hold your balance Allergies/Adverse Reactions: Allergies No Known Allergies Allergy (Verified 04/12/20 11:05) Medications to take at Discharge Pnv No.95/Ferrous Fum/Folic AC [ Caplet] 1 tablet PO DAILY 04/06/20 Iron 04/10/20 Please Follow Up With: Fior Reid MD - [phone] When: Call to make an appointment with your doctor's office for a virtual 1-2 week follow up and 6 week follow up in office. Primary Care Physician: Care Physician,No Primary [Primary Care Provider] - Test Results: Test results from this visit will be discussed in further detail at your follow-up appointment, if applicable.
[2020-04-14 08:34] VITALS: BP 94/56; PULSE 74; RESP 16; TEMP 36.4
== END 2020-04-14 10:50 | disposition home or self-care (01) | DRG 560 ==
LOC: WPOUT 10:41 → WP 13:24 → WPOUT 04-14 10:08
PROVIDERS: Admitting Provider Advanced Practice Midwife; Referring Provider Advanced Practice Midwife; Visit Provider Advanced Practice Midwife
DX: O34.219 Maternal care for unspecified type scar from previous cesarean delivery (principal); O99.824 Streptococcus B carrier state complicating childbirth; O77.0 Labor and delivery complicated by meconium in amniotic fluid; O70.0 First degree perineal laceration during delivery; Z3A.39 39 weeks gestation of pregnancy; Z37.0 Single live birth; O36.8330 Maternal care for abnormalities of the fetal heart rate or rhythm, third trimester, not applicable or unspecified
CPT/HCPCS: 36415; 59025; 59050; 85025; 86850; 86900; 86901; 94760; 99218; J7120; G0378

== ENCOUNTER → 2020-04-27 11:01 | Outpatient (CLI) | payer MEDICAID, SELFPAY ==
[2020-04-12 11:04] VITALS: BMI 21.2
== END ==
PROVIDERS: Referring Provider Advanced Practice Midwife; Visit Provider Advanced Practice Midwife
DX: Z39.1 Encounter for care and examination of lactating mother (principal)
CPT/HCPCS: 96158; 96159

== ENCOUNTER → 2020-07-07 13:25 | Outpatient (CLI) | payer MEDICAID, SELFPAY ==
[2020-04-12 11:04] VITALS: BMI 21.2
== END ==
PROVIDERS: Referring Provider Advanced Practice Midwife; Visit Provider Advanced Practice Midwife
DX: Z39.1 Encounter for care and examination of lactating mother (principal)
CPT/HCPCS: 96158

== ENCOUNTER 2023-03-10 18:10 | Emergency (ER) | payer SELFPAY ==
[2023-03-10 18:10] VITALS: BP 130/95; PULSE 106; RESP 18; TEMP 36.8; O2SAT 100; BMI 16.7
[2023-03-10] MEDS: 0.9% Normal Saline 1,000 ML 999 ML IV (18:58)
[2023-03-10] MEDS: Ketorolac 15 MG/ML Vial IV (18:58)
[2023-03-10 19:04] LABS: Absolute Lymphocyte Count 2.43 X10^3/uL (0.83-4.51); Basophil% 0.7 % (0-1); Eosinophil# 0.39 X10^3/uL; Eosinophils% 2.9 % (0-5); Hematocrit 37.3 % (37-47); Hemoglobin 12.1 g/dL (12.0-15.0); Lymphocyte # 2.43 X10^3/ul (0.83-4.51); Lymphocyte % 17.9 % (19-41); Mean Corp Hgb Conc 32.4 g/dL (32-36); Mean Corpuscular Hgb 28.1 pg (27.0-32.0); Mean Corpuscular Volume 86.5 fL (81-99); Mean Platelet Vol. 9.8 fl (6.2-12.0); Monocyte# 0.65 X10^3/uL; Monocyte% 4.8 % (0-10); NRBC Flagged by Analyzer 0 % (0-5); Neutrophil # 9.95 X10^3/uL (2.7-7.7); Neutrophil % 73.3 % (47-70); Platelet Count 252 K/mm3 (150-450); RBC Distribution Width CV 12.7 % (11.6-14.6); RBC Distribution Width SD 40.2 fl (35.1-43.9); Red Blood Count 4.31 M/mm3 (4.2-5.4); White Blood Count 13.6 K/mm3 (4.4-11.0)
[2023-03-10 19:19] LABS: Anion Gap 6 (5-15); BUN 9 mg/dL (7-18); BUN/Creat Ratio 10.6 RATIO (10-20); Calcium,Total 8.9 mg/dL (8.5-10.1); Chloride 108 mmol/L (98-107); Creatinine, Serum 0.85 mg/dL (0.55-1.02); EST Glomerular Filtration Rate 88 mL/min (>60); Est Glom Filt Rate - Afr Amer 106 mL/min (>60); Estimated Creatinine Clearance 80.39 ml/min; Glucose 94 mg/dL (74-106); Potassium 3.5 mmol/L (3.5-5.1); Sodium Level 141 mmol/L (136-145)
--- NOTE | 2023-03-10 19:34 | EDS_ITS ---
HPI <AFSHIN Longoria - Last Filed: 03/10/23 21:04> History of Present Illness Chief Complaint: Dizziness Narrative Narrative: Patient presenting today due to concerns that she is having side effects from her new medication that she recently started a week ago. She reports that she has a history of anxiety, depression, bipolar disorder and was recently admitted to a psychiatric hospital due to suicidal thoughts. She was started on Wellbutrin, Abilify, and trazodone. Now she has been feeling weak, lightheaded, and has had joint pain for the past 5 to 6 days. She denies any current thoughts of suicide or self-harm and reports that she feels a lot better mentally. She denies any fever, chills, abdominal pain, urinary symptoms, nausea, vomiting, chest pain, shortness of breath. PFSH <AFSHIN Longoria - Last Filed: 03/10/23 21:04> [facility] Home Medications vit no.95-ferrous fumarate 28 mg-folic acid 800 mcg tablet 1 tablet PO DAILY 04/06/20 [History Last Taken 04/11/20 10:00 1] Iron anemia 04/10/20 [History Last Taken 04/11/20 10:00] naproxen 500 mg tablet 500 mg PO BID #14 tabs 03/10/23 [Rx Last Taken Unknown] Allergy/AdvReac Type Severity Reaction Status Date / Time No Known Allergies Allergy Verified 03/10/23 18:12 Social History Smoking Status: Former smoker ROS <AFSHIN Longoria - Last Filed: 03/10/23 21:04> ROS ED Constitutional Constitutional ED: Denies chills or fever(s) Eyes Eyes: Denies change in vision ENT ENT ED: Denies rhinorrhea or sore throat Cardiovascular Cardiovascular: Denies chest pain or palpitations Respiratory/Chest Respiratory/Chest: Denies cough or dyspnea Gastrointestinal Gastrointestinal: Denies abdominal pain, nausea or vomiting Genitourinary Genitourinary ED: Denies dysuria, hematuria or urinary urgency Musculoskeletal Musculoskeletal: Reports arthralgias; Denies myalgias Integumentary Denies abscess, Abrasions or rash Neurologic Neurologic: Denies dizziness or weakness Psychiatric Psychiatric: Denies anxiety, depression, suicidal ideation or suicidal thoughts EXAM <AFSHIN Longoria - Last Filed: 03/10/23 21:04> Physical Exam Const Vital Signs: 03/10/23 18:10 Temperature 98.2 F Temperature Source Temporal Pulse Rate 106 H Respiratory Rate 18 Blood Pressure 130/95 H Blood Pressure Mean 106 Pulse Ox 100 Oxygen Delivery Method Room Air Positive well nourished, well developed and no apparent distress General Appearance ED: well developed HEENT Reports normocephalic and head/scalp atraumatic Mouth ED: Yes moist mucous membranes normal Eyes PERRL and EOMs intact bilaterally Neck full ROM and supple Chest Wall inspection of chest normal Resp normal respiratory effort and clear to auscultation bilaterally Cardio regular rate and regular rhythm GI soft to palpation, non-tender, non-distended and no masses Back/Spine normal ROM and normal to inspection Extremity normal to inspection and full ROM Neuro oriented x3, CN's II-XII intact bilaterally, moves all extremities, no focal motor deficits and no sensory deficits noted Sensorium / Orientation: awake and alert Psych mental status grossly normal and thought process normal Skin no rashes or lesions noted and no wounds <Dr. Julian Boogie MD - Last Filed: 03/10/23 23:24> Physical Exam Const Vital Signs: 03/10/23 18:10 Temperature 98.2 F Temperature Source Temporal Pulse Rate 106 H Respiratory Rate 18 Blood Pressure 130/95 H Blood Pressure Mean 106 Pulse Ox 100 Oxygen Delivery Method Room Air MDM <AFSHIN Longoria - Last Filed: 03/10/23 21:04> [facility] MDM Narrative Medical decision making narrative: Patient presenting due to lightheadedness, weakness, and joint pain that she has had intermittently for the past 5 to 6 days. She thinks it has to do with recently starting new medication about a week ago. She just started Wellbutrin, Abilify, and trazodone. She is well-appearing and in no acute distress, vitals are unremarkable. She has been given IV fluids and Toradol. Labs will be obtained to rule out leukocytosis, anemia, electrolyte abnormality and are unremarkable. On reexamination she reports that she feels a little bit better. It is likely that her symptoms are related to the new medications. She will be following up with a psychiatrist next week to talk about whether or not medication adjustments need to be made. She does not have a PCP but I have given her a referral for 1. She has been given return instructions will be discharged home in stable condition. She is comfortable with plan. Lab Data Attestation: I reviewed the patient's lab results. Lab results narrative: BMP unremarkable, WBC 13.6 Labs: Laboratory Results - last 24 hr 03/10/23 19:00 WBC 13.6 H RBC 4.31 Hgb 12.1 Hct 37.3 MCV 86.5 MCH 28.1 MCHC 32.4 RDW Std Deviation 40.2 RDW Coeff of Giovany 12.7 Plt Count 252 MPV 9.8 Immature Gran % (Auto) 0.400 Neut % (Auto) 73.3 H Lymph % (Auto) 17.9 L [place] % (Auto) 4.8 Eos % (Auto) 2.9 Baso % (Auto) 0.7 Absolute Neuts (auto) 10.0 H Absolute Lymphs (auto) 2.43 Nucleated RBC % 0 Sodium 141 Potassium 3.5 Chloride 108 H Carbon Dioxide 27.0 Anion Gap 6 BUN 9 Creatinine 0.85 Estim Creat Clear Calc 80.39 Est GFR (MDRD) Af Amer 106 Est GFR (MDRD) Non-Af 88 BUN/Creatinine Ratio 10.6 Glucose 94 Calcium 8.9 <Dr. Julian Boogie MD - Last Filed: 03/10/23 23:24> [facility] Lab Data Labs: Laboratory Results - last 24 hr 03/10/23 19:00 WBC 13.6 H RBC 4.31 Hgb 12.1 Hct 37.3 MCV 86.5 MCH 28.1 MCHC 32.4 RDW Std Deviation 40.2 RDW Coeff of [place] 12.7 Plt Count 252 MPV 9.8 Immature Gran % (Auto) 0.400 Neut % (Auto) 73.3 H Lymph % (Auto) 17.9 L [place] % (Auto) 4.8 Eos % (Auto) 2.9 Baso % (Auto) 0.7 Absolute Neuts (auto) 10.0 H Absolute Lymphs (auto) 2.43 Nucleated RBC % 0 Sodium 141 Potassium 3.5 Chloride 108 H Carbon Dioxide 27.0 Anion Gap 6 BUN 9 Creatinine 0.85 Estim Creat Clear Calc 80.39 Est GFR (MDRD) Af Amer 106 Est GFR (MDRD) Non-Af 88 BUN/Creatinine Ratio 10.6 Glucose 94 Calcium 8.9 Treatment and Re-Evaluation :: I have personally performed a face to face assessment of the patient and have reviewed the WOODY Note. I performed a substantive portion of the visit including all aspects of the following. My blanchard findings include: History: Patient complains of just feeling mildly lightheaded. She is not actually vertiginous. She just feels a little bit off. This is since starting new medicines. She states it really started after she got an Abilify injection. She has no fevers or chills. No palpitations. Exam: Patient is nontoxic. She is awake alert appropriate. Mucous membranes are moist. Lungs are clear. Heart is regular when I listen its not tachycardic. Abdomen is thin and nontender. There is no peripheral edema. No rashes. Medical Decision Making: Blood work shows no marked abnormalities. I think her symptoms are likely side effects from medications. I do not think these are true allergies. She can contact her prescribing physician for further dosing. Discharge Plan Triage Chief Complaint: Dizziness ED Midlevel Provider: Fanny Aviles ED Provider: Julian Boogie Dx/Rx/DC Orders Clinical Impression: Medication side effect, Lightheadedness Prescriptions: New naproxen 500 mg tablet 500 mg PO BID Qty: 14 0RF No Action PNV cmb#95-ferrous fumarate-FA 1 EACH tablet 1 tablet PO DAILY Iron Primary Care Provider: Care Physician,No Primary Referrals: Ronald Alanis MD [Med Staff - Psychiatric Nursing Aide] - 3-5 Days Care Physician,No Primary [Primary Care Provider] - Activity Restrictions/Additional Instructions: I have given you a PCP to follow-up with. Please return for any worsening of your symptoms. Disposition Disposition: Home, Self Care Discharge Date/Time: 03/10/23 20:38
== END 2023-03-10 20:38 | disposition home or self-care (01) ==
PROVIDERS: Physician Assistant; Emergency Provider Emergency Medicine; Visit Provider Emergency Medicine
DX: R42 Dizziness and giddiness (principal); F31.9 Bipolar disorder, unspecified; T43.595A Adverse effect of other antipsychotics and neuroleptics, initial encounter; R53.1 Weakness; M25.50 Pain in unspecified joint; F41.9 Anxiety disorder, unspecified; Z79.899 Other long term (current) drug therapy; Z87.891 Personal history of nicotine dependence
CPT/HCPCS: 80048; 85025; 99283; J7030

== ENCOUNTER 2024-04-20 22:19 | Emergency (ER) | payer MEDICAID, SELFPAY ==
[2024-04-20 22:20] VITALS: BP 116/73; PULSE 100; RESP 16; TEMP 37.1; O2SAT 98; BMI 16.3
[2024-04-20 22:22] VITALS: BP 116/73; PULSE 100; RESP 18; TEMP 37.1; O2SAT 98
[2024-04-20 22:45] LABS: Bacteria 0 SEEN /hpf (None Seen); Mucous, Urine 0 SEEN /hpf (<or=2+)
[2024-04-20 22:54] LABS: Color, Urine Yellow (Yellow); Glucose, Dipstick Normal (Normal); Ketone-Dipstick 5 mg/dl (Negative); Leukocyte Esterase-Dipstick 100 /ul (Negative); Nitrite-Dipstick Negative (Negative); Occult Blood-Urine 150 /ul (Negative); Protein-Dipstick 15 mg/dl (Negative); Specific Gravity, Urine 1.015 (1.002-1.030); Urine Bilirubin Dipstick Negative (Negative); Urine Clarity Sl. Cloudy (Clear); Urine Urobilinogen 8 mg/dl (Normal); Urine pH 6.5 (5.0 - 8.0)
[2024-04-20 22:59] LABS: Internal QC Validated? YES +Cl - CLEAR BKGD; Pregnancy, Urine Negative Negative
[2024-04-20 23:03] LABS: Amorphous Sediment 1+ URATE; Red Blood Cells-Urine 5-10 SEEN /hpf (0-5); Squamous Epithelial Cells - UA 5-10 SEEN /hpf (5-10); White Blood Cells 5-10 SEEN /hpf (0-5)
--- NOTE | 2024-04-20 23:14 | EX.ED.DYSGE1 ---
HPI History of Present Illness Chief Complaint: Complaint Informant: patient Narrative Narrative: Patient is a 23-year-old female with no significant past medical history. She reports she has had 3 to 4 days of urinary frequency urgency and dysuria. She denies any concern for vaginal discharge or concern for STD. She states she has similar symptoms in December of this year and was diagnosed with a UTI and had improvement after antibiotic. She states she is concerned for a secondary/repeat infection and therefore comes in for evaluation PFSH PFS Home Medications ?Medication ?Instructions ?Recorded ?Last Taken ?Type vit no.95-ferrous 1 tablet PO DAILY 04/06/20 04/11/20 10:00 History fumarate 28 mg-folic acid 800 mcg 1 tablet Iron anemia 04/10/20 04/11/20 10:00 History naproxen 500 mg tablet 500 mg PO BID #14 tabs 03/10/23 Unknown Rx cephalexin 500 mg capsule 500 mg PO BID 5 days #10 caps 04/20/24 Unknown Rx phenazopyridine 200 mg tablet 200 mg PO TID 2 days #6 tabs 04/20/24 Unknown Rx (Pyridium) Allergy/AdvReac Type Severity Reaction Status Date / Time No Known Allergies Allergy Verified 04/20/24 22:20 Social History Smoking Status: Former smoker ROS ROS ED Constitutional Constitutional ED: Denies chills or fever(s) ENT ENT ED: Denies sore throat Cardiovascular Cardiovascular: Denies chest pain Respiratory/Chest Respiratory/Chest: Denies cough or dyspnea Gastrointestinal Gastrointestinal: Denies abdominal pain, diarrhea, nausea or vomiting Genitourinary Genitourinary ED: Reports dysuria and urinary frequency; Denies hematuria Musculoskeletal Musculoskeletal: Denies back pain Integumentary Denies rash Neurologic Neurologic: Denies headache(s) Hematologic/Lymphatic Hematologic/Lymphatic: Denies easy bleeding or easy bruising EXAM Physical Exam Const Vital Signs: 04/20/24 22:20 04/20/24 22:22 Temperature 98.8 F 98.8 F Temperature Source Temporal Oral Pulse Rate 100 100 Respiratory Rate 16 18 Blood Pressure 116/73 116/73 Blood Pressure Mean 87 87 Pulse Ox 98 98 Oxygen Delivery Method Room Air Room Air Positive well nourished and well developed General Appearance ED: well developed; Negative for pallor HEENT HEENT Narrative: Normocephalic atraumatic Eyes PERRL and EOMs intact bilaterally General Eye ED: Negative for scleral icterus Neck supple Resp normal respiratory effort and clear to auscultation bilaterally Cardio regular rate and regular rhythm GI non-distended and no masses GI Narrative: Mild pain with palpation in the suprapubic region without organomegaly voluntary guarding or rigidity or pulsatile mass Auscultation: normoactive bowel sounds Palpation: soft Back/Spine no CVA tenderness Extremity normal to inspection Neuro oriented x3, CN's II-XII intact bilaterally and no sensory deficits noted Sensorium / Orientation: alert Motor Exam: strength 5/5 throughout Psych mental status grossly normal Skin no rashes or lesions noted General Skin Exam: Negative for jaundice or pallor MDM MDM MDM Narrative Medical decision making narrative: Patient arrived to the ER with stable vitals and reported urinary frequency urgency and dysuria. Differential diagnosis is for UTI versus pyelonephritis versus allergic urethritis versus interstitial cystitis versus complication. As vitals are stable and she does not have signs of systemic infection I felt no need for testing other than a urine sample. test is negative going against a complication and the urine sample shows blood but patient is finishing her menstrual cycle going against kidney stone and there are no bacteria noted. At this time as she does have frequency urgency and dysuria based on her age this is high likelihood for infectious process and therefore the urine will be sent for culture and I will start her on a short round of Keflex. We discussed STD testing but she denies any concern for this and does not want to performed. Therefore at this time as vitals are stable and there are no signs of systemic infection patient can be discharged with symptomatic care and follow-up with family doctor and/or urology on an outpatient basis if symptoms persist. History & Record Review Discussion w/independent historian: Patient Lab Data Attestation: I reviewed the patient's lab results. Labs: Laboratory Results - last 24 hr 04/20/24 22:29 Urine Color Yellow Urine Clarity Sl. Cloudy Urine pH 6.5 Ur Specific [place] 1.015 Urine Protein 15 H Urine Glucose (UA) Normal Urine Ketones 5 H Urine Occult Blood 150 H Urine Nitrite Negative Urine Bilirubin Negative Urine Urobilinogen 8 H Ur Leukocyte Esterase 100 H Urine RBC 5-10 SEEN Urine WBC 5-10 SEEN Ur Squamous Epith Cells 5-10 SEEN Amorphous Sediment 1+ URATE Urine Bacteria 0 SEEN Urine Mucus 0 SEEN Urine Test Negative Discharge Plan Triage Chief Complaint: Complaint ED Provider: Erickson Hernandez Dx/Rx/DC Orders Clinical Impression: Dysuria Instructions: Dysuria Prescriptions: New cephalexin 500 mg capsule 500 mg PO BID 5 Days Qty: 10 0RF phenazopyridine [Pyridium] 200 mg tablet 200 mg PO TID 2 Days Qty: 6 0RF No Action PNV cmb#95-ferrous fumarate-FA 1 EACH tablet 1 tablet PO DAILY Iron naproxen 500 mg tablet 500 mg PO BID Qty: 14 0RF Primary Care Provider: Care Physician,No Primary Referrals: Riki Villeda MD [Med Staff - Active Staff] - Care Physician,No Primary [Primary Care Provider] - Print Language: [place] Disposition Disposition: Home, Self Care
[2024-04-20] MEDS: Phenazopyridine 95 MG Tablet 190 MG PO (23:19)
[2024-04-20] MEDS: Cephalexin 250 MG Capsule 500 MG PO (23:19)
[2024-04-20 23:20] VITALS: BP 124/68; PULSE 69; RESP 18; TEMP 36.9; O2SAT 100
== END 2024-04-20 23:21 | disposition home or self-care (01) ==
PROVIDERS: Emergency Provider Emergency Medicine; Visit Provider Emergency Medicine
DX: R30.0 Dysuria (principal); R35.0 Frequency of micturition; Z87.891 Personal history of nicotine dependence
CPT/HCPCS: 81001; 81025; 87086; 99283